=== PATIENT | male | born 1965 | race Caucasian/White ===

== ENCOUNTER 2017-04-03 07:01 | Inpatient (IN) | payer BC ==
[~2017-04-03 07:01] MED LIST: CEFAZOLIN 2 Gram 2 GM/50 ML BAG IVPB ONE; CELECOXIB 100 MG CAPSULE PO ONE; FAMOTIDINE 20MG TABLET PO ONE; MECLIZINE 25 MG TABLET PO ONE; METOCLOPRAMIDE 10 MG TABLET PO ONE; VANCOMYCIN HCL 1,000 MG in 0.9 % SODIUM CHLORIDE 250ML 250 ML IVPB ONE
[2017-04-03 07:50] LABS: ABO GROUP O; ANTIBODY SCREEN NEGATIVE (NEGATIVE); RH TYPE POSITIVE
[2017-04-03] MEDS ORDERED: DIPHENHYDRAMINE HCL 25 MG CAPSULE PO PRN (10:54)
[2017-04-03] MEDS ORDERED: AL HYDROX/MAG HYDROX 30ML UD PO PRN (10:54)
[2017-04-03] MEDS ORDERED: BISACODYL 10 MG SUPP RC PRN (10:54)
[2017-04-03] MEDS ORDERED: ACETAMINOPHEN W/ CODEINE 300MG/60MG TABLET PO PRN ×2 (10:54)
[2017-04-03] MEDS ORDERED: KETOROLAC 30 MG/ML VIAL IVP PRN ×2 (10:54)
[2017-04-03] MEDS ORDERED: HYDROMORPHONE HCL 1MG/ML **SYRINGE IM PRN (10:54)
[2017-04-03] MEDS ORDERED: ONDANSETRON HCL IV 4 MG/2 ML VIAL IVP PRN (10:54)
[2017-04-03] MEDS ORDERED: HYDROMORPHONE HCL 2 MG/ML VIAL IM PRN (10:54)
[2017-04-03] MEDS ORDERED: ACETAMINOPHEN 325 MG TAB PO PRN (10:54)
[2017-04-03] MEDS ORDERED: NALOXONE 0.4 MG/1 ML VIAL IVP PRN (10:54)
[2017-04-03] MEDS ORDERED: ZOLPIDEM TARTRATE 5 MG TABLET PO PRN (10:54)
[2017-04-03] MEDS ORDERED: TRAMADOL HCL 50 MG TABLET PO PRN (10:54)
[2017-04-03] MEDS ORDERED: MAGNESIUM HYDROXIDE 30 ML UDC PO PRN (10:54)
[2017-04-03] MEDS ORDERED: HYDROCODONE/APAP 10/325 TABLET PO PRN (10:54)
[2017-04-03] MEDS: HYDROCODONE/APAP 10/325 TABLET PO PRN ×2 (15:07→20:03)
[2017-04-03] MEDS ORDERED: BUPIVACAINE 0.75% W/EPI MPF 30ML VIAL IVP ONE (16:00)
[2017-04-03] MEDS ORDERED: TRANEXAMIC ACID 1,000 MG/10 ML ML IV ONE ×2 (16:00)
[2017-04-03] MEDS ORDERED: HYDROMORPHONE HCL 2 MG/ML VIAL IV ONE (16:00)
[2017-04-03] MEDS ORDERED: *PACU ONLY* KETAMINE HCL 10 MG/ML (20ML) VIAL IV ONE (16:00)
[2017-04-03] MEDS ORDERED: PROPOFOL 10 MG/ML VIAL IV ONE (16:00)
[2017-04-03] MEDS ORDERED: FENTANYL PF 100MCG/2ML VIAL IV ONE (16:00)
[2017-04-03] MEDS ORDERED: MIDAZOLAM HCL 2MG/2ML VIAL IV ONE (16:00)
[2017-04-03] MEDS ORDERED: 0.9 % SODIUM CHLORIDE 10 ML VIAL IVP ONE (16:00)
--- NOTE | 2017-04-03 16:04 | Rehab Evaluation ---
Patient Information - Patient Information Diagnosis: R knee OA Ordered Treatment: PT Evaluate and Treat Status: Initial Evaluation Surgery: Yes Date of Surgery: 04/03/17 Past Medical/Surgical Hx: PAST MEDICAL/SURGICAL HISTORY Past Surgical History tonsils, right total knee PMH - Respiratory Hx Respiratory Disorders Yes Hx Asthma Yes: as a child Hx Bronchitis No Hx Chronic Obstructive No Pulmonary Disease (COPD) Hx Dyspnea No Hx Pneumonia No Hx Pulmonary Embolism No Hx Sleep Apnea Yes: does not use cpap Hx Tuberculosis No Hx of CPAP No: not using Hx of URI No PMH - Cardiovascular Hx Cardiovascular Disorders Yes Hx Abnormal EKG No Hx Cardiac Catheterization No Hx Chest Pain No Hx Congestive Heart Failure No Hx Deep Vein Thrombosis No Hx Edema No Hx Heart Attack No Hx Hypertension Yes: on meds fair control Hx Hypotension No Hx Irregular Heartbeat No Hx Palpitations No Hx Pacemaker/Defibrillator No Hx Vascular Disease No Exercise Tolerance Good PMH - Neuro Hx Neurological Disorders No PMH - GI Hx Gastrointestinal Disorders No PMH - Hx Genitourinary Disorders No PMH - Endocrine Hx Endocrine Disorders No Hx Diabetes No Hx Thyroid Disease No PMH - Musculoskeletal Hx Musculoskeletal Disorders Yes Hx Arthritis Yes Hx Back Injury No Hx Fibromyalgia No Hx Gout No Hx Musculoskeletal Disease No Hx Osteoporosis No PMH - Psych Hx Psychiatric Problems No PMH - Hematology/Oncology Hx Hematology/Oncology No Disorders Premorbid Status: Detail (The patient was independent with all mobility prior to surgery.) Social History: Detail (The patient lives with spouse in daughter in a 2 story home with 7-8 steps at the front enterance and 14 steps with one railing to go to his bedroom on the second floor. The patient's bathroom is equipped with a aayr-di-tiqdag with a bench and grab bars and a standard toilet. The patient was vended a standard walker .) Precautions: [place], Other (WBAT on the R LE.) - Time With Patient Total Time Spent With Patient (Min): 30 Treatment Procedures: Detail (Initial Evaluation) Subjective Information - Subjective Information Per Patient (The patient had no complaints of pain. The patient did complain of nausea and lightheadness when sitting up.) Objective Data - Mental Status Patient Orientation: Oriented x3 - Visual Perception Appears within normal limits for therapeutic activities - ROM Not within normal limits (The patient's R knee AROM was flexion 85 degrees, 0 degrees extension.) - Strength/Tone Within normal limits (The patient's L LE strength was 4+ to 5/5 and R LE strength was not tested secondary to status post surgery , however strength is functional (the patient can achieve a SLR).) - Bed Mobility Independent (The patient is independent with supine to and from sit transfer) - Transfers Independent (The patient was independent with sit to stand transfer with verbal cues for proper technique.) - Balance Balance Sitting: Good Balance Standing: Good - Sensation Intact - Gait Detail (The patient ambulated with wheeled walker a distance of 108 feet with CG of 1 for safety and to handle equipment WBAT on the R LE.) Therapy Assessment - Therapy Assessment Detail (The patient was independent with mobility,transfers and CG for safety for ambulation. Feel the patient will progress well with mobility.) Problem List - Problem List Physical Therapy Problem List: Detail (1) Decreased R knee AROM and R LE strength as to be expected following surgery 2) Nonambulatory on stairs) Goals - Goals Physical Therapy Goals: 1) The patient will be independent with ambulation on levels and stairs with assistive device WBAT on the R LE. 2) The patient will be independent with HEP. 3) The patient will be independent with all transfers Prognosis - Prognosis Good Plan - Plan Physical Therapy Plan: PT 1-2 times a day for gait training, transfer training and instruction in HEP until all inpatient PT goals are met.
--- NOTE | 2017-04-03 16:45 | Operative Note ---
DATE OF SURGERY: 04/03/17 PREOPERATIVE DIAGNOSIS: PROFOUND END-STAGE ARTHROSIS OF THE RIGHT KNEE. POSTOPERATIVE DIAGNOSIS: PROFOUND END-STAGE ARTHROSIS OF THE RIGHT KNEE. PROCEDURE: CEMENTED RIGHT TOTAL KNEE ARTHROPLASTY USING MULLEN-NEPHEW ARMAAN II COMPONENTS WITH A SIZE 8 OXINIUM FEMUR, A SIZE 7 STEM TIBIAL BASEPLATE, A 9 mm LIPPED TIBIAL INSERT HIGHLY CROSSLINKED, AND A 35 MM ALL-PLASTIC PATELLA. STAFF SURGEON: CHARO SYED M.D. ANESTHESIA: SPINAL. PREPARATION: CHLORAPREP. INDIVIDUAL CONSIDERATIONS: NONE. PROCEDURE: The patient was taken to the Operating Room and placed supine on the operating table. He had a successful induction of a spinal anesthetic. His right lower extremity was prepped and draped in the usual fashion. The patient had a midline approach to the knee. The limb was elevated. The tourniquet was inflated to 300 mmHg. Sharp dissection was carried down through the skin and subcutaneous tissues. Small veins were coagulated with a Bovie. A medial arthrotomy was performed. Patella was everted and the knee was flexed. He had exposed bone throughout with bone loss medially with fairly pronounced varus deformity. Fat pad were resected, ACL was sacrificed, provisional anterior meniscectomies were performed, and the capsule was released from the medial proximal tibia. The initial femoral airline pilot hole was then made freehand. The intramedullary femoral cutting jig was placed. It was cut in 7.0 degrees of valgus and adjusted for rotation and secured with pins for a 10 mm resection. The initial transverse cut was then made. Skin guide was placed for the anterior and posterior airline pilot holes. It was found that a size 8 would be appropriate. The anterior and posterior cuts followed by chamfer cuts were made , osteophytes removed, and a size 8 trial was placed and found to fit well. The tibia was brought forward and the remainder of the meniscal remnants were removed with a Bovie. The extra-articular tibial cutting jig was placed and it was cut in neutral with a 3-degree AP slope. Care was taken to adjust for rotation and flexion using the extra-articular alignment guide and bony landmarks. It was set for a 9 mm resection and keyed off the high lateral side and secured with pins. When cutting the tibia, care was taken to preserve the PCL insertion on the tibia. After removing osteophytes, it was found that a size 8 would be appropriate. It was adjusted for rotation and secured with pins. With a 9 mm and the femoral trial, there was excellent motion and stability. Ligamentous balance, rotation, and alignment were thought to be normal. The femoral airline pilot holes were impacted and the triflange tibial stamp was impacted, and these trial components were removed. The patient had a very thick patella and roughly 9 mm of bone was removed freehand. The tourniquet was let hand and hemostasis was obtained with a Bovie. The knee was then thoroughly irrigated out with pulsatile Betadine and saline to remove any visual or palpable debris. Bony surfaces were then dried. A size 8 stemmed tibial baseplate was cemented into place, followed by impaction of a 9 mm lipped tibial Highly Crosslinked tibial insert, followed by cementing in the size86 Oxinium femur, followed by cementing of a 35 mm patella. Implant surfaces were compressed and after the cement had set, there was excellent motion and stability, ligamentous balance, rotation, alignment, and patellofemoral tracking were normal, and no lateral release was required. The tourniquet was let down. Hemostasis was obtained with a Bovie. Again, thorough irrigation and debridement of any visual and palpable debris with pulsatile Betadine and saline. The periosteum, subcutaneous, and skin were infiltrated with 30 mL of 0.75% Marcaine with Epinephrine. The capsule was then closed with a running #2 quill, the subcutaneous was closed with running 0 quill, and the skin was closed with karel. The patient did receive 1 gram of Tranexamic Acid preoperatively. I mixed 1 gram of Tranexamic Acid with 30 mL of saline, injected it into the knee through a sterilely 18-gauge needle, and a sterile [place]kee compressive Aquacel-type dressing was applied. The patient tolerated the procedures well. Needle and sponge counts were correct. Estimated blood loss was minimal and he was taken back to the Recovery Room in good condition. There were no complications. JOB NUMBER: [id number] MTDD
[2017-04-03] MEDS: CEFAZOLIN 2 Gram 2 GM/50 ML BAG IVPB SCH (17:04)
[2017-04-03] MEDS: POTASSIUM CHLORIDE/D5-0.9%NACL 20 MEQ/1,000 ML BAG IV SCH (18:06)
[2017-04-03] MEDS: DOCUSATE SODIUM 100 MG CAPSULE PO SCH (22:11)
[2017-04-04] MEDS: CEFAZOLIN 2 Gram 2 GM/50 ML BAG IVPB SCH ×2 (01:50→08:18)
[2017-04-04] MEDS: HYDROCODONE/APAP 10/325 TABLET PO PRN ×3 (03:00→14:23)
[2017-04-04] MEDS: POTASSIUM CHLORIDE/D5-0.9%NACL 20 MEQ/1,000 ML BAG IV SCH ×2 (03:01→03:30)
[2017-04-04 06:34] LABS: HEMATOCRIT 34.8 % (42.0-52.0)
[2017-04-04 06:51] LABS: BLOOD UREA NITROGEN 15 mg/dL (6-20); CREATININE 0.7 mg/dL (0.7-1.2); EST GLOMERULAR FILTRATION RATE > 60 mL/min; GLUCOSE,RANDOM 137 mg/dL (74-109)
[2017-04-04] MEDS ORDERED: LISINOPRIL 20 MG TABLET PO SCH (10:00)
[2017-04-04] MEDS ORDERED: FERROUS SULFATE 325 MG TAB PO SCH (10:00)
[2017-04-04] MEDS ORDERED: RIVAROXABAN 10 MG TABLET PO SCH (10:00)
[2017-04-04] MEDS ORDERED: HYDROCHLOROTHIAZIDE 12.5 MG CAPSULE PO SCH (10:00)
[2017-04-04] MEDS: DOCUSATE SODIUM 100 MG CAPSULE PO SCH (10:03)
--- NOTE | 2017-04-04 10:51 | Physical Therapy Tx Note ---
Physical Therapy Tx Note - Treatment Note Tolerated: Good (Patient's pain a little higher than he would like yet: 6/10 before med, 5/10 after got out of bed. Able to walk with standard walker with very good technique and safely. Able to ambulate on stairs with rail and standard walker folded with very good technique.) Total Time Spent With Patient: 30 Physical Therapy Tx Note: Detail (Patient seen in room and patient supine to sit independently after removed cryocuff and compressive stockings. Worked on knee exercises seated without difficulty for quad, ham and glut sets, knee flexion and extension and hip flexion with knee flexion, ankle pumps. Sit to stand independently then ambulated with standard walker about 75 feet to stairs , ambulated down 12 steps with rail and folded walker for support with CGA. Able to pivot around and ambulated back up 12 steps with same support. Ambulated back to room and into bed independently. Replaced all attachments then made sure call light close. Got a drink for patient. present if needs more assist.) Physical Therapy Problem List: Detail (1) Decreased R knee AROM and R LE strength as to be expected following surgery 2) Nonambulatory on stairs) Physical Therapy Goals: 1) The patient will be independent with ambulation on levels and stairs with assistive device WBAT on the R LE. 2) The patient will be independent with HEP. 3) The patient will be independent with all transfers Prognosis: Good (Patient did very well with gait and stairs, exercises a little more difficult but patient tolerated well. He has passed all skills to go home today but he may want to use a cane on stairs. Will offer if still here this afternoon.) Physical Therapy Plan: PT 1-2 times a day for gait training, transfer training and instruction in HEP until all inpatient PT goals are met.
--- NOTE | 2017-04-04 11:25 | Rehab Evaluation ---
Patient Information - Patient Information Diagnosis: R knee OA Ordered Treatment: OT Evaluate and Treat Status: Initial Evaluation Surgery: Yes Date of Surgery: 04/03/17 Past Medical/Surgical Hx: PAST MEDICAL/SURGICAL HISTORY Past Surgical History tonsils, right total knee PMH - Respiratory Hx Respiratory Disorders Yes Hx Asthma Yes: as a child Hx Bronchitis No Hx Chronic Obstructive No Pulmonary Disease (COPD) Hx Dyspnea No Hx Pneumonia No Hx Pulmonary Embolism No Hx Sleep Apnea Yes: does not use cpap Hx Tuberculosis No Hx of CPAP No: not using Hx of URI No PMH - Cardiovascular Hx Cardiovascular Disorders Yes Hx Abnormal EKG No Hx Cardiac Catheterization No Hx Chest Pain No Hx Congestive Heart Failure No Hx Deep Vein Thrombosis No Hx Edema No Hx Heart Attack No Hx Hypertension Yes: on meds fair control Hx Hypotension No Hx Irregular Heartbeat No Hx Palpitations No Hx Pacemaker/Defibrillator No Hx Vascular Disease No Exercise Tolerance Good PMH - Neuro Hx Neurological Disorders No PMH - GI Hx Gastrointestinal Disorders No PMH - Hx Genitourinary Disorders No PMH - Endocrine Hx Endocrine Disorders No Hx Diabetes No Hx Thyroid Disease No PMH - Musculoskeletal Hx Musculoskeletal Disorders Yes Hx Arthritis Yes Hx Back Injury No Hx Fibromyalgia No Hx Gout No Hx Musculoskeletal Disease No Hx Osteoporosis No PMH - Psych Hx Psychiatric Problems No PMH - Hematology/Oncology Hx Hematology/Oncology No Disorders Premorbid Status: Detail (The patient was independent with all mobility and I/ ADL's prior to surgery.) Social History: Detail (The patient lives with spouse and daughter in a 2 story home with 7-8 steps at the front enterance and 14 steps with one railing to go to his bedroom on the second floor. There is a bathroom on ea. floor. The patient's main bathroom is equipped with a zgmf-ek-dnhfnh with a built in seat and HH shower head. Pt. has a grab bar available to install, and standard toilet.) Precautions: [place], Other (WBAT on the R LE.) - Time With Patient Total Time Spent With Patient (Min): 25 Objective Data - Pain Pain Present: Yes (09/06 R knee) - Mental Status Patient Orientation: Oriented x3 - Visual Perception Appears within normal limits for therapeutic activities - ROM Within normal limits (BUE) - Strength/Tone Within normal limits (BUE 5/5 MMT) - Coordination Appears within normal limits for therapeutic activities - Bed Mobility Independent (Pt. demo. adaptive strategies to assist movement of RLE.) - Transfers Independent (sit<>stand EOB to walker) - Balance Balance Sitting: Good Balance Standing: Fair - Sensation Intact (BUE) - ADL's/IADL's Detail (Educ. provided in adaptive dressing techniques and available AE (customs brokerage manager , sock aid). Pt. demo. ability to dress with min A from to don RLE in elastic waist boxers. Pt. donned elastic waist shorts independently. Pt. and voiced concern for dip in shower floor; discussed use of social media marketing specialist strips and installing grab bar to reduce fall risk. Pt. voiced concern of ability to get on /off toilet at home, as it seems lower than the hospital toilet; discussed use of raised toilet seat or 3-in-1 commode to put over toilet, and use of walker for support when getting on/off toilet. Pt. is also concerned about ability to get off of low surfaces at home, such as his recliner; discussed use of pillows or other firm cushions to raise surface temorarily during recovery.) Therapy Assessment - Therapy Assessment Detail (Pt. has a positive support system and assistance available if needed. Pt. demo. independence in dressing, and awareness of available AE if needed. In- pt. skilled OT services not recommended at this time. However, Pt. may benefit from an in-home OT eval to maximize safety and independence in transfers and bathroom set-up, and address pt's concerns.) Patient Education - Patient Education Teaching Topic: Community Resources, Equipment Use Response: Verbalize Understanding Teaching Method: Discussion Teaching Recipient: Patient, Family () Barriers To Learning: None Problem List - Problem List Physical Therapy Problem List: Detail (1) Decreased R knee AROM and R LE strength as to be expected following surgery 2) Nonambulatory on stairs) Goals - Goals Physical Therapy Goals: 1) The patient will be independent with ambulation on levels and stairs with assistive device WBAT on the R LE. 2) The patient will be independent with HEP. 3) The patient will be independent with all transfers Prognosis - Prognosis Good Plan - Plan Physical Therapy Plan: PT 1-2 times a day for gait training, transfer training and instruction in HEP until all inpatient PT goals are met. Occupational Therapy Plan: D/c from in-pt OT services at this time. Pt. may benefit from in-home OT eval to maximize safety and independence.
--- NOTE | 2017-04-04 14:58 | Physical Therapy Tx Note ---
Physical Therapy Tx Note - Treatment Note Tolerated: Good (Patient is doing extremely well this afternoon and pain better controlled now. Wants to go home this afternoon. Able to try cane on steps to make sure that is best way to perform gait on stairs.) Total Time Spent With Patient: 30 Physical Therapy Tx Note: Detail (Patient seen in room and worked on exercises in bed with heel slides with assist to gain ROM, reviewed other exercises without difficulty. Patient able to move supine to sit to stand independently then ambulated with standard walker 75 feet to stairs and we tried cane on stairs for safety with use of rail also. Patient only walked down then back up three steps but did much better with cane than with folded walker. Ambulated another 50 feet with standard walker WBAT right then back to room (about 125 feet total). Patient asked about bending knee and I suggested sit with leg dangling then help with flexion and extension with other leg. Patient able to get back into bed independently. Patient interested in buying cane so supplied one and wrote a receipt out for patient.) Physical Therapy Problem List: Detail (1) Decreased R knee AROM and R LE strength as to be expected following surgery 2) Nonambulatory on stairs) Physical Therapy Goals: 1) The patient will be independent with ambulation on levels and stairs with assistive device WBAT on the R LE. 2) The patient will be independent with HEP. 3) The patient will be independent with all transfers Prognosis: Good (Excellent and ready to be discharged home with family. Has met all goals.) Physical Therapy Plan: PT 1-2 times a day for gait training, transfer training and instruction in HEP until all inpatient PT goals are met.
--- NOTE | 2017-04-04 19:47 | Discharge Summary ---
DATE OF ADMISSION: 04/03/17 DATE OF DISCHARGE: 04/04/17 DATE OF SURGERY: 04/03/17 HISTORY: Mr. Islas is a delightful 52-year-old male who presents with end-stage arthrosis of his knees. He was admitted after a right total knee arthroplasty. His hospital course was unremarkable. Discharge hemoglobin was 11. He did not require a transfusion. He was independent the night of surgery. DISCHARGE INSTRUCTIONS: The plan is to discharge him home to the care of his family. Home PT and Visiting Nurses have been arranged. He will be given Xarelto followed by Aspirin for DVT prophylaxis. He will be given [place] for pain. The Visiting Nurse will remove his sutures in two weeks and he will follow -up at my office in four weeks. FINAL DIAGNOSIS/PRIMARY DIAGNOSIS: END-STAGE ARTHROSIS OF HIS RIGHT KNEE. SECONDARY DIAGNOSES: HYPERTENSION, STABLE. OPERATIVE BLOOD LOSS ANEMIA. OPERATIONS AND PROCEDURES: CEMENTED RIGHT TOTAL KNEE ARTHROPLASTY. DISCHARGE CONDITION: GOOD. JOB NUMBER: [id number] MTDD
== END 2017-04-04 15:23 | disposition home health service (06) | DRG 470 ==
LOC: MEDSURG 07:01
PROVIDERS: ADMIT Orthopaedic Surgery; ATTEND Orthopaedic Surgery
PROC: 0SRC069 Replacement of Right Knee Joint with Oxidized Zirconium on Polyethylene Synthetic Substitute, Cemented, Open Approach (ICD-10-PCS; principal; 2017-04-03 09:00)
DX: M17.11 Unilateral primary osteoarthritis, right knee (principal); I10 Essential (primary) hypertension
CPT/HCPCS: 80048; 85014; 85018; 86850; 86900; 86901; 97110; 97116; 97165; J2405; J3480; J3490; J7050